=== PATIENT | female | born 1995 | race Two or more races ===

== ENCOUNTER 2021-05-19 13:10 | Observation (INO) | payer MEDICAID ==
[2021-05-19] MEDS ORDERED: PREN-96 PO (14:18)
== END 2021-05-19 15:15 | disposition home or self-care (01) ==
LOC: LDRP 13:10
PROVIDERS: ADMIT Obstetrics & Gynecology Obstetrics; ATTEND Obstetrics & Gynecology Obstetrics
DX: O40.3XX0 Polyhydramnios, third trimester, not applicable or unspecified (principal); Z3A.29 29 weeks gestation of pregnancy
CPT/HCPCS: 59025; 76818; 81002; G0378

== ENCOUNTER 2021-05-28 08:10 | Observation (INO) | payer MEDICAID ==
[~2021-05-28 08:10] MED LIST: PREN-96 PO
== END 2021-05-28 09:30 | disposition home or self-care (01) ==
LOC: LDRP 08:10
PROVIDERS: ADMIT Obstetrics & Gynecology; ATTEND Obstetrics & Gynecology
DX: O40.3XX0 Polyhydramnios, third trimester, not applicable or unspecified (principal); Z3A.30 30 weeks gestation of pregnancy
CPT/HCPCS: 59025; 76818; 81002; 94760; G0378

== ENCOUNTER 2021-05-28 17:50 | Observation (INO) | payer MEDICAID | END 2021-05-28 22:00 | disposition home or self-care (01) | LOC: LDRP 17:50 | PROVIDERS: ADMIT Obstetrics & Gynecology; ATTEND Obstetrics & Gynecology | DX: O42.913 Preterm premature rupture of membranes, unspecified as to length of time between rupture and onset of labor, third trimester (principal); Z3A.30 30 weeks gestation of pregnancy | CPT/HCPCS: 59025; 76815; 81002; 84112; G0378; Q0114 ==

== ENCOUNTER 2021-06-04 10:41 | Observation (INO) | payer MEDICAID | END 2021-06-04 11:57 | disposition home or self-care (01) | LOC: LDRP 10:41 | PROVIDERS: ADMIT Obstetrics & Gynecology; ATTEND Obstetrics & Gynecology | DX: O40.3XX0 Polyhydramnios, third trimester, not applicable or unspecified (principal); Z3A.31 31 weeks gestation of pregnancy | CPT/HCPCS: 59025; 76818; 81002; 94760; G0378 ==

== ENCOUNTER 2021-06-11 09:59 | Observation (INO) | payer MEDICAID | END 2021-06-11 12:32 | disposition home or self-care (01) | LOC: LDRP 11:09 | PROVIDERS: ADMIT Obstetrics & Gynecology; ATTEND Obstetrics & Gynecology | DX: O40.3XX0 Polyhydramnios, third trimester, not applicable or unspecified (principal); Z3A.32 32 weeks gestation of pregnancy | CPT/HCPCS: 59025; 76818; 81002; 94760; G0378 ==

== ENCOUNTER 2021-06-17 08:00 | Observation (INO) | payer MEDICAID | END 2021-06-17 09:48 | disposition home or self-care (01) | LOC: LDRP 08:00 | PROVIDERS: ADMIT Obstetrics & Gynecology; ATTEND Obstetrics & Gynecology | DX: O40.3XX0 Polyhydramnios, third trimester, not applicable or unspecified (principal); Z3A.33 33 weeks gestation of pregnancy | CPT/HCPCS: 59025; 76818; 81002; 94760; G0378 ==

== ENCOUNTER 2021-06-24 10:05 | Observation (INO) | payer MEDICAID | END 2021-06-24 11:32 | disposition home or self-care (01) | LOC: LDRP 10:05 | PROVIDERS: ADMIT Obstetrics & Gynecology; ATTEND Obstetrics & Gynecology | DX: O40.3XX0 Polyhydramnios, third trimester, not applicable or unspecified (principal); Z3A.34 34 weeks gestation of pregnancy | CPT/HCPCS: 59025; 76818; 81002; 94760; G0378 ==

== ENCOUNTER 2021-08-01 10:26 | Observation (INO) | payer MEDICAID | END 2021-08-01 11:45 | disposition home or self-care (01) | LOC: LDRP 10:26 | PROVIDERS: ADMIT Obstetrics & Gynecology; ATTEND Obstetrics & Gynecology | DX: O48.0 Post-term pregnancy (principal); Z3A.40 40 weeks gestation of pregnancy | CPT/HCPCS: 59025; 76818; 81002; 94760; G0378 ==

== ENCOUNTER 2021-08-03 08:55 | Observation (INO) | payer MEDICAID ==
[2021-08-03] MEDS ORDERED: FERR-20 PO (09:15)
== END 2021-08-03 11:07 | disposition home or self-care (01) ==
LOC: LDRP 08:55
PROVIDERS: ADMIT Obstetrics & Gynecology; ATTEND Obstetrics & Gynecology
DX: O48.0 Post-term pregnancy (principal); O62.9 Abnormality of forces of labor, unspecified; Z3A.40 40 weeks gestation of pregnancy
CPT/HCPCS: 59025; 76818; 81002; 94760; G0378

== ENCOUNTER 2021-08-05 16:20 | Inpatient (IN) | payer MEDICAID ==
[~2021-08-05] VITALS: Ht 157.5 cm; Wt 81.2 kg
[~2021-08-05 16:20] MED LIST changes: +FERR-20 PO
[2021-08-05] MEDS ORDERED: LIDOCAINE 2%HCL (LOCAL ANESTH.) INJ 10ml MDV IJ PRN (16:30)
[2021-08-05] MEDS ORDERED: miSOPROStol 50 MCG per PRE-CUT 1/2 TAB PO PRN (16:30)
[2021-08-05] MEDS ORDERED: BUTORPHANOL TARTRATE 2 MG/1 ML VIAL IV PRN ×2 (16:30)
[2021-08-05] MEDS ORDERED: PROMETHAZINE HCL 25 MG/ML 1ML IV PRN (16:30)
[2021-08-05] MEDS: LACTATED RINGER'S 1,000 ML IV SCH (16:53)
[2021-08-05 17:29] LABS: Alcohol, Urine < 3.0 mg/dL (0-10); Amphetamine Screen, Urine NEGATIVE (NEGATIVE); Barbiturate Scree,Urine NEGATIVE (NEGATIVE); Benzodiazephine Screen, Urine NEGATIVE (NEGATIVE); Cannabinoid Screen, Urine NEGATIVE (NEGATIVE); Cocaine Screen, Urine NEGATIVE (NEGATIVE); Opiate Scree,Urine NEGATIVE (NEGATIVE); Phencyclidine Screen, Urine NEGATIVE (NEGATIVE)
[2021-08-05 17:37] LABS: Urine Amorphous Crystal FEW /hpf (None Seen); Urine Bacteria FEW /hpf (None Seen); Urine Blood 3+ /uL (Negative); Urine Mucus FEW (None Seen); Urine WBC 38 /hpf (0 - 5)
[2021-08-05 18:28] LABS: Albumin 2.6 g/dL (3.4-5.0); BUN/Creatinine Ratio 15.9; Calcium 8.6 mg/dL (8.5-10.1); Potassium 3.8 mmol/L (3.5-5.1)
[2021-08-05 18:31] LABS: Bilirubin, Total 0.3 mg/dL (0.2-1.0); Total Protein 6.6 g/dL (6.4-8.2)
[2021-08-05 19:13] LABS: Basophils # (auto) 0 10 ^3/uL (0-0.2); Eosinophils # (auto) 0.1 10 ^3/uL (0-0.8); Eosinophils % (auto) 0.9 % (0.0-7.0); Monocytes # (auto) 0.7 10 ^3/uL (0-1.3)
[2021-08-05 19:15] LABS: Basophils % (auto) 0.3 % (0.0-2.0); Hemoglobin 10.9 g/dL (12.2-16.2); Lymphocytes # (auto) 1.4 10 ^3/uL (0.4-5.4); Lymphocytes % (auto) 13.5 % (10.0-50.0); Mean Corpuscular Hemoglobin 26.6 pg (28.0-32.0); Mean Corpuscular Hgb Conc. 34.1 g/dL (32.0-36.0); Monocytes % (auto) 7.3 % (0.0-12.0); Neutrophils # (auto) 7.8 10 ^3/uL (1.6-8.6); Red Blood Cells 4.11 10^6/uL (4.0-5.20); Red Cell Distribution Width 14.6 % (11.8-14.3)
[2021-08-05 19:51] LABS: INR 0.92 (0.9-1.15); Partial Thromboplastin Time 28.5 sec (23.6-33.0)
[2021-08-06] MEDS: LACTATED RINGER'S 1,000 ML IV SCH ×3 (02:45→12:32)
[2021-08-06] MEDS ORDERED: LACT. RINGERS/OXYTOCIN 20UNITS 500 ML IV ONE ×2 (03:00→03:30)
[2021-08-06] MEDS: DERMOPLAST 60ML BOTTLE TOP PRN ×2 (04:19→17:02)
[2021-08-06] MEDS: WITCH HAZEL-GLYCERIN PAD TOP PRN ×2 (04:20→17:02)
[2021-08-06] MEDS: PHISODERM TOP SOLN 240ML BTL TOP PRN ×2 (04:20→17:02)
[2021-08-06] MEDS ORDERED: LIDOCAINE HCL 2 %PF INJ 10ML AMP IJ ONE (05:45)
[2021-08-06] MEDS ORDERED: fentaNYL CITRATE 100 MCG/2 ML VL IV ONE (05:45)
[2021-08-06] MEDS ORDERED: ePHEDrine SULFATE 50 MG/ML AMP IV ONE (05:45)
[2021-08-06] MEDS ORDERED: ROPIVACAINE HCL 200 ML EPI SCH ×2 (05:45→07:15)
[2021-08-06] MEDS ORDERED: NALOXONE HCL 0.4 MG/ML VIAL IV ONE (05:45)
[2021-08-06] MEDS ORDERED: ceFAZolin 2 GM in D5W 5% 100 ML IV ONE (13:00)
[2021-08-06] MEDS: ACETAMINOPHEN 325 MG TAB PO PRN ×2 (13:25→22:25)
[2021-08-06] MEDS ORDERED: LACT. RINGERS/OXYTOCIN 20UNITS 1,000 ML IV SCH (14:30)
[2021-08-06] MEDS ORDERED: METHYLERGONOVINE MALEATE 0.2 MG/ML AMP IM ONE ×2 (16:46→17:00)
[2021-08-06] MEDS ORDERED: ACETAMINOPHEN 325 MG TAB PO PRN (17:15)
[2021-08-06] MEDS ORDERED: ONDANSETRON ODT 4 MG TAB PO PRN (17:15)
[2021-08-06] MEDS: IBUPROFEN 600 MG TAB PO PRN (19:00)
[2021-08-06 20:00] VITALS: BP 116/65
[2021-08-06] MEDS ORDERED: ceFAZolin 1GM/50ML 50 ML IV ONE (21:00)
[2021-08-06] MEDS: DOCUSATE SOD 100 MG CAP PO SCH (22:24)
[2021-08-06] MEDS: ceFAZolin 1GM/50ML 50 ML IV SCH (22:24)
[2021-08-06 23:00] VITALS: BP 111/60
[2021-08-07 03:00] VITALS: BP 95/51
[2021-08-07] MEDS: IBUPROFEN 600 MG TAB PO PRN ×2 (05:12→11:42)
[2021-08-07] MEDS: ceFAZolin 1GM/50ML 50 ML IV SCH ×2 (05:47→14:35)
[2021-08-07 06:06] LABS: RPR Non Reactive (Non Reactive)
[2021-08-07 07:30] VITALS: BP 105/54
[2021-08-07 11:10] VITALS: BP 102/55
[2021-08-07 14:53] VITALS: BP 103/53
[2021-08-07 19:15] VITALS: BP 110/61
[2021-08-07] MEDS: DOCUSATE SOD 100 MG CAP PO SCH ×2 (22:00→23:59)
[2021-08-07 22:55] VITALS: BP 107/69
[2021-08-07] MEDS: ACETAMINOPHEN 325 MG TAB PO PRN (23:59)
[2021-08-08 03:09] VITALS: BP 117/67
[2021-08-08] MEDS: IBUPROFEN 600 MG TAB PO PRN (03:22)
[2021-08-08] MEDS ORDERED: DOCU-94 PO ×2 (07:45→07:57)
[2021-08-08] MEDS ORDERED: IBUP400T22 PO ×2 (07:45→07:57)
[2021-08-08 08:05] VITALS: BP 107/68
[2021-08-08 11:00] VITALS: BP 110/70
[2021-08-08 11:04] VITALS: BP 110/70
== END 2021-08-08 11:04 | disposition home or self-care (01) | DRG 560 ==
LOC: LDRP 16:20
PROVIDERS: ADMIT Obstetrics & Gynecology; ATTEND Obstetrics & Gynecology
PROC: 0KQM0ZZ Repair Perineum Muscle, Open Approach (ICD-10-PCS; principal; 2021-08-06)
PROC: 10E0XZZ Delivery of Products of Conception, External Approach (ICD-10-PCS; 2021-08-06)
PROC: 3E0R3BZ Introduction of Anesthetic Agent into Spinal Canal, Percutaneous Approach (ICD-10-PCS; 2021-08-06)
PROC: 00HU33Z Insertion of Infusion Device into Spinal Canal, Percutaneous Approach (ICD-10-PCS; 2021-08-06)
PROC: 0W8NXZZ Division of Female Perineum, External Approach (ICD-10-PCS; 2021-08-06)
DX: O48.0 Post-term pregnancy (principal); Z37.0 Single live birth; O69.81X0 Labor and delivery complicated by cord around neck, without compression, not applicable or unspecified; Z20.822 Contact with and (suspected) exposure to COVID-19; O70.1 Second degree perineal laceration during delivery; Z3A.40 40 weeks gestation of pregnancy
CPT/HCPCS: 36415; 59025; 59409; 62282; 80053; 80307; 81001; 85025; 85610; 85730; 86592; 86850; 86900; 86901; 94760; 94762; 96360; 96361; 96365; 96366; 96372; 96374; 96375; G0378; J0690; J2001; J2590; J7060

== ENCOUNTER 2023-01-08 09:59 | Emergency (ER) | payer BC, MEDICAID ==
[~2023-01-08] VITALS: Ht 157.5 cm; Wt 70.3 kg
[~2023-01-08 09:59] MED LIST changes: +DOCU-94 PO; -FERR-20 PO; +FERR325T24 PO; +IBUP-1453 PO
[2023-01-08] MEDS ORDERED: ONDANSETRON ODT 4 MG TAB PO ONE (10:45)
[2023-01-08 11:19] LABS: Basophils # (auto) 0 10 ^3/uL (0-0.2); Eosinophils # (auto) 0.1 10 ^3/uL (0-0.8); Hematocrit 43.2 % (36.0-46.0); Hemoglobin 14.3 g/dL (12.2-16.2); Mean Corpuscular Hemoglobin 25.7 pg (28.0-32.0); Mean Corpuscular Volume 77.8 fL (80.0-100.0); Monocytes # (auto) 0.6 10 ^3/uL (0-1.3); Red Blood Cells 5.55 10^6/uL (4.0-5.20)
[2023-01-08 11:22] LABS: Basophils % (auto) 0.4 % (0.0-2.0); Eosinophils % (auto) 1.3 % (0.0-7.0); Lymphocytes # (auto) 1.7 10 ^3/uL (0.4-5.4); Monocytes % (auto) 10.9 % (0.0-12.0); Neutrophils # (auto) 3.2 10 ^3/uL (1.6-8.6); Neutrophils % (auto) 56.4 % (37.0-80.0); Nucleated Red Blood Cells % 0.1 %; Red Cell Distribution Width 13.5 % (11.8-14.3); White Blood Cell 5.6 10^3/uL (4.4-10.8)
[2023-01-08 11:36] VITALS: BP 127/90; PULSE 89; RESP 16; TEMP 97.7; O2SAT 99
[2023-01-08 11:38] LABS: Urine Bacteria NONE SEEN /hpf (None Seen); Urine Blood Negative /uL (Negative); Urine Clarity HAZY (Clear); Urine Color Yellow (Yellow); Urine Mucus FEW (None Seen); Urine Protein, UAD 1+ (Negative); Urine WBC 20 /hpf (0 - 5)
[2023-01-08 11:53] LABS: COVID19 ANTIGEN SOFIA FIA NEGATIVE (NEGATIVE)
[2023-01-08 12:06] LABS: Alanine Aminotransferase 40 U/L (7-40); Albumin 4.8 g/dL (3.2-4.8); Alkaline Phosphatase 89 U/L (46-116); Anion Gap 7 (5-15); Aspartate Aminotransferase 16 U/L (13-40); BUN/Creatinine Ratio 13.3 (10.0-20.0); Bilirubin, Total 0.6 mg/dL (0.2-1.0); Blood Urea Nitrogen 11 mg/dL (9-23); Calcium 9.3 mg/dL (8.7-10.4); Carbon Dioxide 26 mmol/L (20-30); Chloride 106 mmol/L (98-107); Glucose 95 mg/dL (74-106); Lipase 42 U/L (12-53); Potassium 3.2 mmol/L (3.5-5.1); Sodium 139 mmol/L (136-145); Total Protein 7.6 g/dL (5.7-8.2)
[2023-01-08] MEDS ORDERED: CIPR-173 PO (12:50)
[2023-01-08] MEDS ORDERED: ZOFR4T PO (12:52)
== END 2023-01-08 13:11 | disposition home or self-care (01) ==
LOC: ER 09:59
DX: N39.0 Urinary tract infection, site not specified (principal); R10.2 Pelvic and perineal pain; R11.10 Vomiting, unspecified; Z79.899 Other long term (current) drug therapy; Z91.018 Allergy to other foods; Z91.013 Allergy to seafood; Z20.822 Contact with and (suspected) exposure to COVID-19
CPT/HCPCS: 36415; 80053; 81001; 83690; 84702; 85025; 87426; 99283; Q0162

== ENCOUNTER → 2023-04-02 | Outpatient (CLI) | payer BC, MEDICAID ==
[~2023-04-02] MED LIST changes: +CIPR-173 PO; +ZOFR4T PO
[2023-04-02 14:01] LABS: Basophils # (auto) 0 10 ^3/uL (0-0.2); Eosinophils # (auto) 0.1 10 ^3/uL (0-0.8); Monocytes # (auto) 0.5 10 ^3/uL (0-1.3); Neutrophils # (auto) 7.3 10 ^3/uL (1.6-8.6); White Blood Cell 9.8 10^3/uL (4.4-10.8)
[2023-04-02 14:03] LABS: Basophils % (auto) 0.4 % (0.0-2.0); Hematocrit 38.2 % (36.0-46.0); Hemoglobin 12.5 g/dL (12.2-16.2); Lymphocytes # (auto) 1.8 10 ^3/uL (0.4-5.4); Lymphocytes % (auto) 18.5 % (10.0-50.0); Mean Corpuscular Hemoglobin 26.1 pg (28.0-32.0); Mean Corpuscular Hgb Conc. 32.7 g/dL (32.0-36.0); Mean Corpuscular Volume 79.7 fL (80.0-100.0); Neutrophils % (auto) 75.1 % (37.0-80.0)
[2023-04-02 14:35] LABS: Urine Bacteria NONE SEEN /hpf (None Seen); Urine Blood Negative /uL (Negative); Urine Clarity HAZY (Clear); Urine Color Yellow (Yellow); Urine Hyaline Cast FEW /lpf (0 - 2); Urine Mucus FEW (None Seen); Urine Protein, UAD Negative (Negative); Urine Urobilinogen Normal (Negative); Urine WBC 4 /hpf (0 - 5); Urine pH 5.5 (5.0-8.0)
[2023-04-02 14:59] LABS: Alanine Aminotransferase 19 U/L (7-40); Albumin 4.4 g/dL (3.2-4.8); Alkaline Phosphatase 75 U/L (46-116); Anion Gap 9 (5-15); Aspartate Aminotransferase < 8 U/L (13-40); BUN/Creatinine Ratio 10.8 (10.0-20.0); Bilirubin, Total 0.5 mg/dL (0.2-1.0); Blood Urea Nitrogen 7 mg/dL (9-23); Calcium 9.4 mg/dL (8.5-10.1); Carbon Dioxide 23 mmol/L (20-30); Chloride 105 mmol/L (98-107); Cholesterol 133 mg/dL (< 200); Glucose 81 mg/dL (74-106); HDL Cholesterol 44 mg/dL (40-59); LDL Cholesterol 82 mg/dL (< 100); Potassium 3.7 mmol/L (3.5-5.1); Sodium 137 mmol/L (136-145); Total Protein 7.2 g/dL (5.7-8.2); Triglycerides 102 mg/dL (< 150)
[2023-04-02 15:03] LABS: T3 Total 2.02 ng/mL (0.60-1.81)
[2023-04-02 15:04] LABS: Free T4 (Free Thyroxine) 0.97 ng/dL (0.89-1.76); Thyroid Stimulating Hormone 0.58 uIU/mL (0.358-3.74)
[2023-04-02 15:32] LABS: Magnesium 1.8 mg/dL (1.6-2.6)
== END | disposition home or self-care (01) ==
LOC: LAB 13:07
PROVIDERS: ATTEND Nurse Practitioner Gerontology
DX: Z00.01 Encounter for general adult medical examination with abnormal findings (principal); Z29.9 Encounter for prophylactic measures, unspecified; Z13.1 Encounter for screening for diabetes mellitus
CPT/HCPCS: 36415; 80053; 80061; 81001; 81025; 83735; 84439; 84443; 84480; 84702; 85025; 87086

== ENCOUNTER → 2023-06-11 | Outpatient (CLI) | payer BC, MEDICAID ==
[2023-06-11 09:23] LABS: Basophils # (auto) 0 10 ^3/uL (0-0.2); Eosinophils # (auto) 0.1 10 ^3/uL (0-0.8); Lymphocytes # (auto) 1.3 10 ^3/uL (0.4-5.4); Monocytes # (auto) 0.4 10 ^3/uL (0-1.3); Neutrophils # (auto) 6.3 10 ^3/uL (1.6-8.6); White Blood Cell 8.1 10^3/uL (4.4-10.8)
[2023-06-11 09:24] LABS: Basophils % (auto) 0.4 % (0.0-2.0); Eosinophils % (auto) 1.2 % (0.0-7.0); Hematocrit 36.8 % (36.0-46.0); Hemoglobin 12.3 g/dL (12.2-16.2); Lymphocytes % (auto) 16.5 % (10.0-50.0); Mean Corpuscular Hemoglobin 26.6 pg (28.0-32.0); Mean Corpuscular Hgb Conc. 33.3 g/dL (32.0-36.0); Monocytes % (auto) 4.9 % (0.0-12.0); Red Cell Distribution Width 13.2 % (11.8-14.3)
[2023-06-11 10:12] LABS: Amphetamine Screen, Urine Neg (NEGATIVE); Barbiturate Scree,Urine Neg (NEGATIVE)
[2023-06-11 10:13] LABS: Benzodiazephine Screen, Urine Neg (NEGATIVE); Cannabinoid Screen, Urine Neg (NEGATIVE); Cocaine Screen, Urine Neg (NEGATIVE); Opiate Scree,Urine Neg (NEGATIVE); Phencyclidine Screen, Urine Neg (NEGATIVE)
[2023-06-12 08:06] LABS: RPR Non Reactive (Non Reactive)
[2023-06-13 04:07] LABS: Chlamydia Trachomatis, NAA Negative (Negative); Neisseria gonorrhoeae, NAA Negative (Negative)
== END | disposition home or self-care (01) ==
LOC: LAB 08:59
PROVIDERS: ATTEND Obstetrics & Gynecology
DX: Z34.80 Encounter for supervision of other normal pregnancy, unspecified trimester (principal); Z31.430 Encounter of female for testing for genetic disease carrier status for procreative management; N39.0 Urinary tract infection, site not specified; Z3A.00 Weeks of gestation of pregnancy not specified
CPT/HCPCS: 36415; 80307; 83036; 84144; 84702; 85025; 86592; 86703; 86762; 86850; 86900; 86901; 87086; 87340

== ENCOUNTER → 2023-07-09 | Outpatient (CLI) | payer BC, MEDICAID ==
[2023-07-09 09:12] LABS: Basophils # (auto) 0 10 ^3/uL (0-0.2); Basophils % (auto) 0.4 % (0.0-2.0); Eosinophils # (auto) 0.1 10 ^3/uL (0-0.8); Eosinophils % (auto) 0.7 % (0.0-7.0); Hematocrit 36.3 % (36.0-46.0); Hemoglobin 11.7 g/dL (12.2-16.2); Lymphocytes # (auto) 1.4 10 ^3/uL (0.4-5.4); Lymphocytes % (auto) 13.3 % (10.0-50.0); Mean Corpuscular Hgb Conc. 32.3 g/dL (32.0-36.0); Mean Corpuscular Volume 80.5 fL (80.0-100.0); Monocytes # (auto) 0.6 10 ^3/uL (0-1.3); Monocytes % (auto) 5.8 % (0.0-12.0); Neutrophils # (auto) 8.4 10 ^3/uL (1.6-8.6); Neutrophils % (auto) 79.8 % (37.0-80.0); Red Blood Cells 4.51 10^6/uL (4.0-5.20); Red Cell Distribution Width 13.8 % (11.8-14.3); White Blood Cell 10.5 10^3/uL (4.4-10.8)
[2023-07-09 09:22] LABS: Urine Bacteria FEW /hpf (None Seen); Urine Blood Negative /uL (Negative); Urine Clarity HAZY (Clear); Urine Color Yellow (Yellow); Urine Mucus FEW (None Seen); Urine Protein, UAD TRACE (Negative); Urine Specific Gravity 1.024 (1.001-1.035); Urine Urobilinogen Normal (Negative); Urine WBC 5 /hpf (0 - 5)
[2023-07-09 09:43] LABS: Albumin 4.2 g/dL (3.2-4.8); Alkaline Phosphatase 99 U/L (46-116); Anion Gap 5 (5-15); Aspartate Aminotransferase 10 U/L (13-40); Blood Urea Nitrogen 8 mg/dL (9-23); Carbon Dioxide 25 mmol/L (20-30); Chloride 106 mmol/L (98-107); Glucose 80 mg/dL (74-106); Potassium 3.9 mmol/L (3.5-5.1); Sodium 136 mmol/L (136-145)
[2023-07-09 09:44] LABS: Alanine Aminotransferase < 9 U/L (7-40); Bilirubin, Total 0.4 mg/dL (0.2-1.0); Total Protein 6.7 g/dL (5.7-8.2)
== END | disposition home or self-care (01) ==
LOC: LAB 09:01
PROVIDERS: ATTEND Nurse Practitioner Gerontology
DX: Z29.9 Encounter for prophylactic measures, unspecified (principal); R94.4 Abnormal results of kidney function studies; E05.90 Thyrotoxicosis, unspecified without thyrotoxic crisis or storm
CPT/HCPCS: 36415; 80053; 81001; 83036; 85025

== ENCOUNTER → 2023-10-19 | Outpatient (CLI) | payer BC, MEDICAID ==
[2023-10-19 10:39] LABS: Basophils # (auto) 0 10 ^3/uL (0-0.2); Eosinophils # (auto) 0.1 10 ^3/uL (0-0.8); Hemoglobin 10.1 g/dL (12.2-16.2); Lymphocytes # (auto) 1.3 10 ^3/uL (0.4-5.4); Monocytes # (auto) 0.5 10 ^3/uL (0-1.3); Monocytes % (auto) 5.8 % (0.0-12.0)
[2023-10-19 10:43] LABS: Basophils % (auto) 0.4 % (0.0-2.0); Eosinophils % (auto) 0.6 % (0.0-7.0); Hematocrit 30.9 % (36.0-46.0); Lymphocytes % (auto) 16.1 % (10.0-50.0); Mean Corpuscular Hemoglobin 25.1 pg (28.0-32.0); Mean Corpuscular Hgb Conc. 32.9 g/dL (32.0-36.0); Mean Corpuscular Volume 76.5 fL (80.0-100.0); Neutrophils # (auto) 6.4 10 ^3/uL (1.6-8.6); Neutrophils % (auto) 77.1 % (37.0-80.0); Red Blood Cells 4.04 10^6/uL (4.0-5.20); Red Cell Distribution Width 14.1 % (11.8-14.3); White Blood Cell 8.3 10^3/uL (4.4-10.8)
[2023-10-20 07:07] LABS: RPR Non Reactive (Non Reactive)
[2023-10-20 22:06] LABS: Chlamydia Trachomatis, NAA Negative (Negative); Neisseria gonorrhoeae, NAA Negative (Negative)
== END | disposition home or self-care (01) ==
LOC: LAB 09:59
PROVIDERS: ATTEND Obstetrics & Gynecology
DX: Z34.80 Encounter for supervision of other normal pregnancy, unspecified trimester (principal); Z72.51 High risk heterosexual behavior
CPT/HCPCS: 36415; 85025; 86592

== ENCOUNTER 2023-11-04 08:50 | Observation (INO) | payer BC, MEDICAID ==
[~2023-11-04] VITALS: Ht 157.5 cm; Wt 78.9 kg
== END 2023-11-04 10:22 | disposition home or self-care (01) ==
LOC: LDRP 08:50 → UNDOADMOB 08:50 → LDRP 09:00 → UNDODISOB 10:22
PROVIDERS: ADMIT Obstetrics & Gynecology; ATTEND Obstetrics & Gynecology
DX: O48.0 Post-term pregnancy (principal); O34.63 Maternal care for abnormality of vagina, third trimester; N89.8 Other specified noninflammatory disorders of vagina; Z3A.40 40 weeks gestation of pregnancy
CPT/HCPCS: 59025; 76818; 81002; 94760; G0378

== ENCOUNTER 2023-11-06 08:18 | Observation (INO) | payer BC, MEDICAID | END 2023-11-06 09:49 | disposition home or self-care (01) | LOC: LDRP 08:18 | PROVIDERS: ADMIT Obstetrics & Gynecology; ATTEND Obstetrics & Gynecology | DX: O62.9 Abnormality of forces of labor, unspecified (principal); Z3A.40 40 weeks gestation of pregnancy | CPT/HCPCS: 59025; 76818; 81002; 94760; G0378 ==

== ENCOUNTER 2023-11-08 10:54 | Observation (INO) | payer BC, MEDICAID | END 2023-11-08 14:48 | disposition home or self-care (01) | LOC: LDRP 10:54 → UNDOADMOB 10:54 → LDRP 13:01 → UNDODISOB 14:48 | PROVIDERS: ADMIT Obstetrics & Gynecology; ATTEND Obstetrics & Gynecology | DX: O48.0 Post-term pregnancy (principal); Z3A.40 40 weeks gestation of pregnancy | CPT/HCPCS: 59025; 76818; 81002; G0378 ==

== ENCOUNTER 2023-11-09 23:58 | Inpatient (IN) | payer BC, MEDICAID ==
[~2023-11-09] VITALS: Ht 157.5 cm; Wt 78.9 kg
[2023-11-10] MEDS ORDERED: NALBUPHINE HCL 10 MG/1ml INJECTION IM PRN (01:45)
[2023-11-10] MEDS ORDERED: LIDOCAINE 2%HCL (LOCAL ANESTH.) INJ 20ML MDV IJ PRN (01:45)
[2023-11-10] MEDS ORDERED: BUTORPHANOL TARTRATE 2 MG/1 ML VIAL IV PRN ×2 (01:45)
[2023-11-10 02:23] LABS: Basophils # (auto) 0 10 ^3/uL (0-0.2); Basophils % (auto) 0.2 % (0.0-2.0); Eosinophils # (auto) 0 10 ^3/uL (0-0.8); Hemoglobin 10.3 g/dL (12.2-16.2); Lymphocytes # (auto) 1.3 10 ^3/uL (0.4-5.4); Monocytes # (auto) 0.9 10 ^3/uL (0-1.3); Neutrophils # (auto) 12.4 10 ^3/uL (1.6-8.6); Nucleated Red Blood Cells % 0.1 %; White Blood Cell 14.7 10^3/uL (4.4-10.8)
[2023-11-10 02:25] LABS: Eosinophils % (auto) 0.3 % (0.0-7.0); Hematocrit 31.3 % (36.0-46.0); Lymphocytes % (auto) 9.2 % (10.0-50.0); Mean Corpuscular Hemoglobin 24.7 pg (28.0-32.0); Mean Corpuscular Hgb Conc. 32.8 g/dL (32.0-36.0); Mean Corpuscular Volume 75.3 fL (80.0-100.0); Monocytes % (auto) 6.2 % (0.0-12.0); Neutrophils % (auto) 84.1 % (37.0-80.0); Red Blood Cells 4.16 10^6/uL (4.0-5.20); Red Cell Distribution Width 14.6 % (11.8-14.3)
[2023-11-10 02:37] LABS: Alanine Aminotransferase 11 U/L (7-40); Albumin 3.8 g/dL (3.2-4.8); Alkaline Phosphatase 164 U/L (46-116); Anion Gap 9 (5-15); Aspartate Aminotransferase < 8 U/L (13-40); BUN/Creatinine Ratio 11.5 (10.0-20.0); Bilirubin, Total 0.6 mg/dL (0.2-1.0); Blood Urea Nitrogen 7 mg/dL (9-23); Calcium 8.7 mg/dL (8.7-10.4); Carbon Dioxide 18 mmol/L (20-30); Chloride 105 mmol/L (98-107); Glucose 102 mg/dL (74-106); Potassium 3.5 mmol/L (3.5-5.1); Sodium 132 mmol/L (136-145); Total Protein 6.7 g/dL (5.7-8.2)
[2023-11-10 02:39] LABS: INR 0.96 (0.9-1.15); Prothrombin Time 10.2 sec (9.3-11.8)
[2023-11-10 02:43] LABS: Urine Bacteria None Seen /hpf (None Seen)
[2023-11-10] MEDS: LACTATED RINGER'S 1,000 ML IV SCH (02:44)
[2023-11-10] MEDS: NALBUPHINE HCL 10 MG/1ml INJECTION IV PRN (03:09)
[2023-11-10 03:10] LABS: Amphetamine Screen, Urine Neg (NEGATIVE)
[2023-11-10 03:11] LABS: Barbiturate Scree,Urine Neg (NEGATIVE); Benzodiazephine Screen, Urine Neg (NEGATIVE); Cannabinoid Screen, Urine Neg (NEGATIVE); Cocaine Screen, Urine Neg (NEGATIVE); Opiate Scree,Urine Neg (NEGATIVE); Phencyclidine Screen, Urine Neg (NEGATIVE)
[2023-11-10 03:13] LABS: Urine Blood 2+ /uL (Negative); Urine Clarity Turbid (Clear); Urine Color Yellow (Yellow); Urine Mucus FEW (None Seen); Urine Protein, UAD 1+ (Negative); Urine Specific Gravity 1.026 (1.001-1.035); Urine Urobilinogen Normal (Negative); Urine WBC 113 /hpf (0 - 5)
[2023-11-10] MEDS: PHISODERM TOP SOLN 240ML BTL TOP PRN (03:13)
[2023-11-10] MEDS: WITCH HAZEL-GLYCERIN PAD TOP PRN (03:13)
[2023-11-10] MEDS: DERMOPLAST 60ML BOTTLE TOP PRN (03:13)
[2023-11-10] MEDS: METHYLERGONOVINE MALEATE 0.2 MG/ML AMP IM ONE (04:14)
[2023-11-10] MEDS: LACT. RINGERS/OXYTOCIN 20UNITS 500 ML IV ONE ×2 (04:15→04:37)
[2023-11-10] MEDS: ceFAZolin 2 GM/D5W50ml 50 ML IV ONE (04:47)
[2023-11-10] MEDS: PRENATAL VITAMIN TAB PO SCH (10:00)
[2023-11-10 11:20] VITALS: BP 110/68; PULSE 80; RESP 17; TEMP 97.9; O2SAT 96
[2023-11-10] MEDS: ACETAMINOPHEN 325 MG TAB PO PRN (12:44)
[2023-11-10 14:59] VITALS: BP 99/58; PULSE 93; RESP 18; TEMP 97.9; O2SAT 96
[2023-11-10] MEDS: IBUPROFEN 600 MG TAB PO PRN (15:03)
[2023-11-10 19:18] VITALS: BP 101/58; PULSE 77; RESP 20; TEMP 97.9; O2SAT 98
[2023-11-10] MEDS: DOCUSATE SOD 100 MG CAP PO SCH (21:15)
[2023-11-10] MEDS ORDERED: FERR325T24 PO (21:27)
[2023-11-10] MEDS ORDERED: PREN-96 PO (21:27)
[2023-11-10] MEDS ORDERED: ASCO1TAB27 PO (21:27)
[2023-11-10] MEDS ORDERED: IBU600T PO (21:27)
[2023-11-10] MEDS ORDERED: DOCU-94 PO (21:27)
[2023-11-10 23:03] VITALS: BP 104/57; PULSE 66; RESP 16; TEMP 97.7; O2SAT 97
[2023-11-11 03:30] VITALS: BP 103/59; PULSE 61; RESP 12; TEMP 97.6; O2SAT 95
[2023-11-11 07:07] LABS: RPR Non Reactive (Non Reactive)
[2023-11-11 07:09] VITALS: BP 109/62; PULSE 75; RESP 17; TEMP 97.9; O2SAT 99
[2023-11-11 08:04] LABS: Basophils # (auto) 0 10 ^3/uL (0-0.2); Eosinophils # (auto) 0.1 10 ^3/uL (0-0.8); Hemoglobin 8.4 g/dL (12.2-16.2); Lymphocytes # (auto) 1.6 10 ^3/uL (0.4-5.4); Monocytes # (auto) 0.7 10 ^3/uL (0-1.3); Neutrophils # (auto) 9.7 10 ^3/uL (1.6-8.6); Neutrophils % (auto) 79.9 % (37.0-80.0); White Blood Cell 12.2 10^3/uL (4.4-10.8)
[2023-11-11 08:07] LABS: Basophils % (auto) 0.3 % (0.0-2.0); Hematocrit 25.8 % (36.0-46.0); Lymphocytes % (auto) 13.4 % (10.0-50.0); Mean Corpuscular Hemoglobin 24.5 pg (28.0-32.0); Mean Corpuscular Hgb Conc. 32.5 g/dL (32.0-36.0); Mean Corpuscular Volume 75.5 fL (80.0-100.0); Monocytes % (auto) 5.4 % (0.0-12.0); Nucleated Red Blood Cells % 0.1 %; Red Blood Cells 3.42 10^6/uL (4.0-5.20); Red Cell Distribution Width 14.7 % (11.8-14.3)
[2023-11-11 11:01] VITALS: BP 110/75; PULSE 100; RESP 17; TEMP 97.7; O2SAT 97
[2023-11-12 19:06] LABS: Treponema pallidum Ab (FTA-Ab) Non Reactive (Non Reactive)
== END 2023-11-11 14:42 | disposition home or self-care (01) | DRG 806 ==
LOC: UNDOADMOB 23:58 → LDRP 23:58 → INTOOBSV 11-10 01:35 → LDRP 11-10 01:35 → OBSVTOIN 11-10 01:35
PROVIDERS: ADMIT Obstetrics & Gynecology; ATTEND Obstetrics & Gynecology
PROC: 10E0XZZ Delivery of Products of Conception, External Approach (ICD-10-PCS; principal; 2023-11-10)
PROC: 0HQ9XZZ Repair Perineum Skin, External Approach (ICD-10-PCS; 2023-11-10)
DX: O48.0 Post-term pregnancy (principal); O72.1 Other immediate postpartum hemorrhage; Z37.0 Single live birth; O77.0 Labor and delivery complicated by meconium in amniotic fluid; O70.0 First degree perineal laceration during delivery; Z3A.40 40 weeks gestation of pregnancy; Z91.013 Allergy to seafood; Z91.018 Allergy to other foods; O90.81 Anemia of the puerperium
CPT/HCPCS: 36415; 59025; 59409; 80053; 80307; 81001; 81002; 85025; 85610; 85730; 86592; 86803; 86850; 86900; 86901; 94760; 94762; 96360; 96361; 96365; 96366; 96372; 96374; G0378; J2590